=== PATIENT | female | born 1965 | race American Indian/Alaskan Native ===

== ENCOUNTER 2016-06-07 07:14 | Outpatient (CLI) | payer MEDICARE ==
--- NOTE | 2016-06-07 09:53 | Mammography Report ---
BILATERAL MAMMOGRAM: Compared 06/07/15. CAD study utilized. FINDINGS: Predominance of adipose tissue bilaterally. No mass or microcalcification. Benign axillary nodes. Benign calcifications. IMPRESSION: Benign findings. Annual follow-up recommended. BI-RADS CATEGORY: 2 = Benign ACR BI-RADS MAMMOGRAPHIC CODES: 0 = Needs additional imaging evaluation; 1 = Negative; 2 = Benign; 3 = Probably benign; 4 = Suspicious; 5 = Malignant; 6 = Known biopsy-proven malignancy COMMENT: 1. Dense breast tissue, i.e., adenosis, fibrocystic changes, etc., may obscure an underlying neoplasm. 2. Approximately 10% of cancers are not detected with mammography. 3. A negative mammography report should not delay biopsy if a clinically suspicious mass is present. COMMENT: Patient follow-up letters are generated in [employer].
== END 2016-06-07 07:15 | disposition home or self-care (01) ==
LOC: MAMMO 07:14
PROVIDERS: ATTEND Family Medicine
DX: Z12.31 Encounter for screening mammogram for malignant neoplasm of breast (principal)
CPT/HCPCS: 77067; G0202

== ENCOUNTER 2017-04-20 09:36 | Emergency (ER) | payer MEDICARE ==
[2017-04-20 10:44] VITALS: BP 111/55
--- NOTE | 2017-04-20 11:17 | XRay Report ---
LEFT ANKLE, 3 views: History: left ankle pain. Bone mineralization is normal. No acute osseous abnormality or joint pathology is identified. Moderate plantar spur. Mild soft tissue swelling is noted. IMPRESSION: Soft tissue swelling. Plantar spur.
--- NOTE | 2017-04-20 11:27 | Emergency Department Report ---
ED Lower Extremity HPI - General Chief Complaint: Extremity Injury, Lower Stated Complaint: L ANKLE PAIN Time Seen by Provider: 04/20/17 10:50 Source: patient Mode of arrival: Ambulatory Limitations: No Limitations - History of Present Illness Complaint: ankle injury -: Sudden, days(s) Injury: Ankle: Left Type of Injury: eversion Place: home Severity: mild Improves With: nothing Worsens With: nothing Associated Symptoms: swelling (lateral) - Related Data Home Medications Medication Instructions Recorded Confirmed Last Taken Aspirin EC [Aspirin Enteric Coated 81 mg PO QDAY 11/21/13 11/27/13 11/21/13 09: 00 TAB] HYDROcodone/ACETAMINOPHEN [Lortab 1 each PO PRN PRN 11/21/13 11/27/13 11/26/13 09:00 5-325 mg Tablet] Hydrochlorothiazide 12.5 mg PO DAILY 11/21/13 11/27/13 11/27/13 06:00 Loratadine [Claritin] 10 mg PO PRN PRN 11/21/13 11/27/13 11/26/13 09:00 Lubiprostone (Nf) [Amitiza (Nf)] 24 mcg PO BID 11/21/13 11/27/13 11/26/13 09:00 Meloxicam 15 mg PO QDAY 11/21/13 11/27/13 11/25/13 09:00 Omeprazole 40 mg PO DAILY 11/21/13 11/27/13 11/25/13 09:00 Tramadol HCl 50 mg PO TID 11/21/13 11/27/13 11/26/13 09:00 Zolpidem [Ambien] 10 mg PO HS 11/21/13 11/27/13 11/26/13 22:00 tiZANidine [Zanaflex] 4 mg PO BID 11/21/13 11/27/13 11/26/13 09:00 Previous Rx's Medication Instructions Recorded Last Taken Type Promethazine [Phenergan] 25 mg PO Q6H PRN #10 tablet 11/27/13 Unknown Rx oxyCODONE /ACETAMINOPHEN [Percocet 1 - 2 tab PO Q4HR PRN #30 tablet 11/27/13 Unknown Rx 5/325] Allergies Allergy/AdvReac Type Severity Reaction Status Date / Time Albee And Derivatives Allergy THROAT Verified 10/21/13 09:00 CLOSES Latex, Natural Rubber Allergy Rash Verified 10/21/13 09:00 bisoprolol fumarate AdvReac Rash Verified 11/21/13 15:25 [From Ziac] chlorhexidine gluconate AdvReac Rash Verified 11/21/13 15:25 [From [employer]] citric acid AdvReac Rash Verified 11/21/13 15:25 glycerin AdvReac Rash Verified 11/21/13 15:25 [From [employer]] hydrochlorothiazide AdvReac Rash Verified 11/21/13 15:25 [From Ziac] hydroxyethylcellulose AdvReac Rash Verified 11/21/13 15:25 [From [employer]] latex AdvReac Rash Verified 11/21/13 15:25 ED Review of Systems ROS: Stated complaint: L ANKLE PAIN Other details as noted in HPI Comment: All other systems reviewed and negative Musculoskeletal: other (l ankle pain p rolling it last pm) ED Past Medical Hx - Past Medical History Hx Hypertension: Yes (10+ YEARS, HCTZ) Hx GERD: Yes Hx Liver Disease: No Hx Renal Disease: No Hx Sickle Cell Disease: No (SICKLE CELL TRAIT) Hx Asthma: Yes (CHILDHOOD) Additional medical history: LIVER Dz - Surgical History Additional Surgical History: GALL BLADDER REMOVED - Social History Smoking Status: Never Smoker Substance Use Type: None - Medications Home Medications: Home Medications Medication Instructions Recorded Confirmed Last Taken Type Aspirin EC [Aspirin Enteric Coated 81 mg PO QDAY 11/21/13 11/27/13 11/21/13 09: 00 History TAB] HYDROcodone/ACETAMINOPHEN [Lortab 1 each PO PRN PRN 11/21/13 11/27/13 11/26/13 09:00 History 5-325 mg Tablet] Hydrochlorothiazide 12.5 mg PO DAILY 11/21/13 11/27/13 11/27/13 06:00 History Loratadine [Claritin] 10 mg PO PRN PRN 11/21/13 11/27/13 11/26/13 09:00 History Lubiprostone (Nf) [Amitiza (Nf)] 24 mcg PO BID 11/21/13 11/27/13 11/26/13 09:00 History Meloxicam 15 mg PO QDAY 11/21/13 11/27/13 11/25/13 09:00 History Omeprazole 40 mg PO DAILY 11/21/13 11/27/13 11/25/13 09:00 History Tramadol HCl 50 mg PO TID 11/21/13 11/27/13 11/26/13 09:00 History Zolpidem [Ambien] 10 mg PO HS 11/21/13 11/27/13 11/26/13 22:00 History tiZANidine [Zanaflex] 4 mg PO BID 11/21/13 11/27/13 11/26/13 09:00 History Promethazine [Phenergan] 25 mg PO Q6H PRN #10 tablet 11/27/13 Unknown Rx oxyCODONE /ACETAMINOPHEN [Percocet 1 - 2 tab PO Q4HR PRN #30 tablet 11/27/13 Unknown Rx 5/325] ED Physical Exam - General Limitations: No Limitations General appearance: alert - Head Head exam: Present: atraumatic - Eye Eye exam: Present: normal appearance Pupils: Present: normal accommodation - ENT ENT exam: Present: mucous membranes moist - Neck Neck exam: Present: normal inspection - Respiratory Respiratory exam: Present: normal lung sounds bilaterally - Cardiovascular Cardiovascular Exam: Present: regular rate - GI/Abdominal GI/Abdominal exam: Present: soft - Rectal Rectal exam: Present: deferred - Expanded Lower Extremity Exam Left Hip exam: Present: normal inspection Upper Leg exam: Present: normal inspection Knee exam: Present: normal inspection Lower Leg exam: Present: normal inspection Ankle exam: Present: full ROM (w pain), tenderness (lateral mal swelling), swelling (pain lateral). Absent: abrasion, laceration, ecchymosis, deformity, crepidus, dislocation, erythema Foot/Toe exam: Present: normal inspection - Back Exam Back exam: Present: normal inspection, full ROM - Neurological Exam Neurological exam: Present: alert, oriented X3, CN II-XII intact - Psychiatric Psychiatric exam: Present: normal affect, normal mood - Skin Skin exam: Present: warm, dry, intact ED Course Vital Signs 04/20/17 10:41 Temperature 98.0 F Pulse Rate 79 Respiratory 20 Rate Blood Pressure 111/55 O2 Sat by Pulse 99 Oximetry - Reevaluation(s) Reevaluation #1: 04/20/17 11:43 to er w l lat mal swelling p rolling ankle on pain management for chronic pain xray noted crutches/bandar dc home w fu poc ED Lower Extremity MDM - Radiology Data Radiology results: report reviewed, image reviewed - Medical Decision Making see note - Differential Diagnosis ro fx Critical care attestation.: If time is entered above; I have spent that time in minutes in the direct care of this critically ill patient, excluding procedure time. ED Disposition Clinical Impression: Ankle sprain Disposition: DC-01 TO HOME OR SELFCARE Is pt being admited?: No Does the pt Need Aspirin: No Condition: Stable Instructions: Ankle Sprain (ED) Additional Instructions: ice bandar rest elevate crutches continue home pain meds follow up with ortho concepc[facility] for repeat films Referrals: RENE ORTIZ MD [Staff Physician] - 3-5 Days Time of Disposition: 11:33
== END 2017-04-20 12:04 | disposition home or self-care (01) ==
LOC: ED 09:36
DX: S93.492A Sprain of other ligament of left ankle, initial encounter (principal); J45.909 Unspecified asthma, uncomplicated; K21.9 Gastro-esophageal reflux disease without esophagitis; Z91.040 Latex allergy status; Z88.8 Allergy status to other drugs, medicaments and biological substances; Z79.82 Long term (current) use of aspirin; I10 Essential (primary) hypertension; X58.XXXA Exposure to other specified factors, initial encounter; Y93.89 Activity, other specified; Y92.89 Other specified places as the place of occurrence of the external cause; Y99.8 Other external cause status
CPT/HCPCS: 99284

== ENCOUNTER 2017-06-08 09:04 | Outpatient (CLI) | payer MEDICARE ==
--- NOTE | 2017-06-08 16:24 | Mammography Report ---
BILATERAL DIGITAL SCREENING MAMMOGRAM with CAD: 06/08/17 09:04:00 CLINICAL: Routine screening. COMPARISON:06/07/16 FINDINGS: The breasts are almost entirely fatty. No mass, architectural distortion or suspicious calcifications. IMPRESSION: No mammographic evidence of malignancy. BI-RADS CATEGORY: 1 - - Negative RECOMMENDATION: Routine mammographic screening in one year. COMMENT: Patient follow-up letters are generated by our [employer] application.
== END 2017-06-08 09:05 | disposition home or self-care (01) ==
LOC: MAMMO 09:04
PROVIDERS: ATTEND Family Medicine
DX: Z12.31 Encounter for screening mammogram for malignant neoplasm of breast (principal)
CPT/HCPCS: 77067

== ENCOUNTER 2017-07-16 08:00 | Outpatient (CLI) | payer MEDICARE | END 2017-07-16 08:01 | disposition home or self-care (01) | LOC: ECHO 08:00 | DX: I51.7 Cardiomegaly (principal); R55 Syncope and collapse | CPT/HCPCS: 93306 ==

== ENCOUNTER 2018-06-12 08:56 | Outpatient (CLI) | payer MEDICARE ==
--- NOTE | 2018-06-12 11:32 | Mammography Report ---
BILATERAL DIGITAL SCREENING MAMMOGRAM with CAD: 06/12/18 08:56:00 CLINICAL: Routine screening. COMPARISON:06/08/17 FINDINGS: The breasts are almost entirely fatty. No mass, architectural distortion or suspicious calcifications. IMPRESSION: No mammographic evidence of malignancy. BI-RADS CATEGORY: 1 - - Negative RECOMMENDATION: Routine mammographic screening in one year. COMMENT: Patient follow-up letters are generated by our [facility] application.
== END 2018-06-12 08:57 | disposition home or self-care (01) ==
LOC: MAMMO 08:56
PROVIDERS: ATTEND Family Medicine
DX: Z12.31 Encounter for screening mammogram for malignant neoplasm of breast (principal); I10 Essential (primary) hypertension; J45.909 Unspecified asthma, uncomplicated; K21.9 Gastro-esophageal reflux disease without esophagitis
CPT/HCPCS: 77067

== ENCOUNTER 2020-05-17 08:08 | Outpatient (CLI) | payer MEDICARE ==
--- NOTE | 2020-05-17 18:32 | Mammography Report ---
DIGITAL SCREENING MAMMOGRAM WITH CAD, 05/17/2020 CLINICAL INFORMATION / INDICATION: Routine screening mammography. TECHNIQUE: Digital bilateral 2D mammography was obtained in the craniocaudal and mediolateral obliqu e projections. This examination was interpreted without the benefit of Computer-Aided Detection angy sis. COMPARISON: 06/12/2018 FINDINGS: Breast Density: There are scattered areas of fibroglandular density. No dominant mass, suspicious calcifications, or architectural distortion in either breast. IMPRESSION: No mammographic evidence of malignancy. Follow up recommendation: Routine yearly BI-RADS Category 1: Negative. A "normal" or negative report should not discourage follow up or biopsy of a clinically significant f inding. A written summary of these findings will be mailed to the patient. The patient will be entered into a mammography reporting system which will generate a reminder letter for the patient's next appointmen t at the appropriate interval. The [employer] recommends yearly mammograms starting at age 40 and continuing as l nia as a woman is in good health. Breast MRI is recommended for women with an approximate 20-25% or greater lifetime risk of breast cancer, including women with a strong family history of breast or ova oli cancer or who have been treated for Hodgkin's disease. Signer Name: Slava Conklin MD Signed: 05/17/2020 6:28 PM Workstation Name: [id number]
== END 2020-05-17 08:09 | disposition home or self-care (01) ==
LOC: MAMMO 08:08
PROVIDERS: ATTEND Family Medicine
DX: Z12.31 Encounter for screening mammogram for malignant neoplasm of breast (principal)
CPT/HCPCS: 77067

== ENCOUNTER 2021-05-18 07:44 | Outpatient (CLI) | payer MEDICARE ==
--- NOTE | 2021-05-19 10:55 | Mammography Report ---
DIGITAL SCREENING MAMMOGRAM WITH CAD, 05/18/2021 CLINICAL INFORMATION / INDICATION: Routine screening mammography. TECHNIQUE: Digital bilateral 2D mammography was obtained in the craniocaudal and mediolateral obliqu e projections. This examination was interpreted with the benefit of Computer-Aided Detection analysis . COMPARISON: 05/17/2020, 06/12/2018 FINDINGS: Breast Density: There are scattered areas of fibroglandular density. No dominant mass, suspicious calcifications, or architectural distortion in either breast. There has been no significant interval change. IMPRESSION: No mammographic evidence of malignancy. Follow up recommendation: Routine yearly BI-RADS Category 1: NEGATIVE A "normal" or negative report should not discourage follow up or biopsy of a clinically significant f inding. A written summary of these findings will be mailed to the patient. The patient will be entered into a mammography reporting system which will generate a reminder letter for the patient's next appointmen t at the appropriate interval. The [employer] recommends yearly mammograms starting at age 40 and continuing as l nia as a woman is in good health. Breast MRI is recommended for women with an approximate 20-25% or greater lifetime risk of breast cancer, including women with a strong family history of breast or ova oli cancer or who have been treated for Hodgkin's disease. Signer Name: Yifan Munoz MD Signed: 05/19/2021 10:50 AM Workstation Name: [id number]
== END 2021-05-18 07:45 | disposition home or self-care (01) ==
LOC: MAMMO 07:44
PROVIDERS: ATTEND Family Medicine
DX: Z12.31 Encounter for screening mammogram for malignant neoplasm of breast (principal)
CPT/HCPCS: 77067